=== PATIENT | female | born 1990 | race Caucasian/White ===

== ENCOUNTER 2016-12-16 03:38 | Inpatient (IN) | payer BC ==
[~2016-12-16] VITALS: Ht 167.6 cm; Wt 87.1 kg
[~2016-12-16 03:38] MED LIST: CETI10TA84 PO; PRENTAB26 PO; TRIA75TA53 PO; VALA500T60 PO
[2016-12-16 04:49] VITALS: Ht 167.6 cm; Wt 87.1 kg
[2016-12-16] MEDS ORDERED: LACTATED RINGER'S 1000ML 1,000 ML IV PRN (06:18)
[2016-12-16] MEDS ORDERED: LACTATED RINGER'S 1000ML 1,000 ML IV SCH (06:18)
[2016-12-16] MEDS ORDERED: PENICILLIN G POTASSIUM IV 6 MU in DEXTROSE 5% 250ML 250 ML IV STA (06:21)
[2016-12-16] MEDS ORDERED: FENTANYL 2MCG/ML ROPIV 1.25MG/ML 100ML BAG EPI ONE (06:39)
[2016-12-16] MEDS ORDERED: BUPIVACAINE 0.25% 30 ML VIAL ONE (06:39)
[2016-12-16] MEDS ORDERED: EpHEDrine SULFATE INJ 50 MG/ML AMP ONE (06:39)
[2016-12-16] MEDS ORDERED: FENTANYL CITRATE INJ 50 MCG/1 ML 2 ML VIAL ONE (06:39)
[2016-12-16 06:47] LABS: HEMATOCRIT 37.8 % (37-47); MEAN CELL VOLUME 80.8 fL (80-100); MEAN CORPUSCULAR HEMOGLOBIN 29.1 pg (25-34); MEAN PLATELET VOLUME 10.4 fL (7.4-10.4); PLATELET COUNT 298 K/uL (130-400); RED BLOOD COUNT 4.68 M/uL (4.2-5.4); WHITE BLOOD COUNT 18.28 K/uL (4.8-10.8)
--- NOTE | 2016-12-16 07:53 | HISTORY & PHYSICAL EXAMINATION ---
DATE OF ADMISSION: 12/16/2016 CHIEF COMPLAINT: Contractions. HISTORY OF PRESENT ILLNESS: The patient is a 26-year-old G1, P0 at 39 weeks and 4 days of gestation who was admitted this morning for labor. She started to feel contractions around 1:00 a.m. and they got closer and regular after 4:00 a.m. She was here and her cervix was checked to be 2 cm and then she ambulated. She was rechecked in 2 hours and cervix changed to 4 cm and she was admitted. Now her contractions are getting even closer, every 1 to 2 minutes and more painful. She desires epidural for pain. She denies leakage of fluid or vaginal bleeding. She reports good movements. Her has been complicated by: 1. Placenta previa on anatomy scan which was resolved on 10/08/2016. 2. History of genital herpes. No outbreaks over 1 year. She has been taking Valtrex daily during whole . 3. Meniere's disease. She is on Maxzide. PAST MEDICAL HISTORY: As above. PAST SURGICAL HISTORY: Tonsillectomy, wisdom teeth extraction. ALLERGIES: CLINDAMYCIN CAUSES RASH. MEDICATIONS: Valtrex 500 mg daily, vitamins daily, Flonase spray as needed, saline nasal spray as needed, Maxzide 75/50 mg daily, calcium 500 mg daily. SOCIAL HISTORY: The patient denies smoking, alcohol or drug use. GYNECOLOGIC HISTORY: The patient has a history of herpes in the past. Last outbreak was over a year ago. She presented to the office on 10/07/2016 when she noticed a lesion on her vulva. Exam showed whitening skin which appeared like leuokoplakia/ lichen sclerosus. It was cultured and herpes culture was negative. She was recommended to come back for biopsy of the lesion if it did not go away. She has not come back for biopsy. 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 It seems like lichen sclerosus.She has no symptoms from it. No itching/ burning / irritation or pain. Recommended to have biopsy at 6 weeks visit. She denies any history of chlamydia or gonorrhea. LABS: Blood type is A positive, antibody screen negative, rubella positive, RPR nonreactive, HIV nonreactive. H\T\H was 14/42, platelets 385. GC chlamydia cultures were negative. Quad screen testing was negative, first trimester screening was negative. One hour Glucola was 130 mg/dL. H\T\H was 12/37, 3-hour Glucola was negative. GBS culture was positive on 11/15/2016. PHYSICAL EXAMINATION: GENERAL: The patient is alert, oriented x3. She is in moderate distress with contractions. VITAL SIGNS: Her blood pressure is 125/73, respiration 20, pulse 85, temperature 97.9. CARDIOVASCULAR SYSTEM: S1, S2, RRR. LUNGS: Clear to auscultation bilaterally. ABDOMEN: Soft, gravid, Dayron 7-1/2 to 8 pounds. EXTREMITIES: Nontender, no edema. PELVIC EXAMINATION: Labia inspected again leukoplakia of the labia minor as described above. No lesions suggesting of herpes. She has no symptoms. Her cervix is 5 cm dilated, 80% effaced, -2, vertex. heart rate 130s, category 1. Hague contractions every 1-2 minutes. ASSESSMENT AND PLAN: The patient is a 26-year-old G1, P0 at 39 weeks and 4 days of gestation presenting in active labor. Vital signs stable, afebrile. heart rate reassuring. GBS positive. PLAN: Admit, IV fluids, epidural for pain and penicillin for GBS. The patient already received the first dose of penicillin. Anticipate spontaneous vaginal delivery. All questions were answered. MTDD
[2016-12-16] MEDS ORDERED: FENTANYL 2MCG/ML ROPIV 1.25MG/ML 100ML BAG EPI PRN (08:00)
[2016-12-16] MEDS ORDERED: NALBUPHINE HCL INJ 10 MG/ML AMP IV PRN (08:00)
[2016-12-16] MEDS ORDERED: DiphenhydrAMINE HCL 50 MG/ML VIAL IV PRN (08:00)
[2016-12-16] MEDS ORDERED: LACTATED RINGER'S 1000ML 500 ML IV PRN (08:00)
[2016-12-16] MEDS ORDERED: NALOXONE HCL INJ 1 MG in SODIUM CHLORIDE 0.9% 1000ML 1,000 ML IV PRN (08:00)
[2016-12-16] MEDS ORDERED: NALOXONE HCL 0.4 MG/1 ML VIAL/CARP IV PRN (08:00)
[2016-12-16] MEDS ORDERED: ONDANSETRON INJ 2 MG/ML 2 ML VIAL IV PRN (08:00)
[2016-12-16] MEDS ORDERED: EpHEDrine SULFATE INJ 50 MG/ML AMP IV PRN (08:00)
[2016-12-16] MEDS: PENICILLIN G POTASSIUM IV 3 MU in DEXTROSE 5% 100ML 100 ML IV PRN ×2 (10:02→13:40)
[2016-12-16] MEDS ORDERED: OXYTOCIN 30 UNITS/500ML NSS IV ONE (13:25)
[2016-12-16] MEDS ORDERED: MEASLES, MUMPS & RUBELLA VIRUS VIAL SQ. ONE (15:00)
[2016-12-16] MEDS ORDERED: LANOLIN OINT EXT PRN ×2 (15:00)
[2016-12-16] MEDS ORDERED: METHYLERGONOVINE MALEATE 0.2 MG/ML AMP IM ONE (15:00)
[2016-12-16] MEDS ORDERED: ACETAMINOPHEN 325 MG TAB PO PRN (15:00)
[2016-12-16] MEDS ORDERED: HYDROCORTISONE ACETATE 25 MG SUPP PR PRN (15:00)
[2016-12-16] MEDS ORDERED: OXYTOCIN 30 UNITS/500ML NSS IV PRN (15:00)
[2016-12-16] MEDS ORDERED: BENZOCAINE 20% AER SPR 82.5 GM CAN EXT PRN (15:00)
[2016-12-16] MEDS ORDERED: DIPHTHERIA/TETANUS/PERTUSSIS 0.5 ML SYR/VIAL IM. ONE (15:00)
[2016-12-16] MEDS ORDERED: SUPERCREAM 0.870 % 15GM JAR EXT PRN (15:00)
--- NOTE | 2016-12-16 15:11 | DELIVERY SUMMARY ---
DATE OF OPERATION: 12/16/2016 DATE OF DELIVERY: 12/16/2016. TIME OF DELIVERY OF BABY: 1414 p.m. TIME OF DELIVERY OF PLACENTA: 1429 p.m. DETAILS OF DELIVERY: The patient was found to be fully dilated and desired to push. She pushed for about half an hour and baby's head was . The hymenal ring and the perineal body muscles appeared to be tight around the baby's head and the perineum was found to be short, close to the anal sphincter. After verbal consent was obtained, right mediolateral episiotomy was opened to prevent third degree laceration and then the baby's head was delivered without difficulty. There was a nuchal cord around the neck and body cord around the chest. They were reduced while delivering the baby. The baby was handed to the mother where mouth and nose were suctioned and cord was delayed clamped after 1 minute. It was cut. It was a 3-vessel cord. Then cord blood was obtained. Then the vagina and perineum were checked for lacerations. There was only a right mediolateral episiotomy which was opened earlier. Rectal exam was done and confirmed to be second degree. Gloves were changed. It was repaired with 2-0 Vicryl in a running locked fashion bringing the perineal body muscles and bulbocavernosus muscles together and the skin in subcuticular fashion. The placenta was found in the vagina. It was actually pushed out while the patient is having a vomiting episode. It was examined to be complete. The uterus was explored and found to be empty and cleared of all clots and debris. Fundus was firm. EBL was 400. Mother and baby tolerated the procedure well. Sponge, lap, needle and instrument counts were correct x3. Baby was a viable female infant. Apgars 8/9. Weight is 3995 gr. No complications happened and I was present during whole procedure. I attest to the content of the Intraoperative Record and any orders documented therein. Any exceptions are noted below. MTDD
--- NOTE | 2016-12-16 15:58 | Anesthesia Procedure Note ---
Anesthesia Epidural Removal Nt Date & Time Dec 16, 2016 at 15:59 Vital Signs Pain Intensity: 0.0 Notes Mental Status: alert / awake / arousable, participated in evaluation Nausea / Vomiting: adequately controlled Pain: adequately controlled Airway Patency, RR, SpO2: stable & adequate BP & HR: stable & adequate Hydration State: stable & adequate Neuraxial Anesthesia: was administered Anesthetic Complications: no major complications apparent, pt satisfied with anesthetic care Epidural: removed without complications, with tip intact
[2016-12-16 17:05] LABS: HEMATOCRIT 31.9 % (37-47); MEAN CELL VOLUME 82.6 fL (80-100); MEAN CORPUSCULAR HGB CONC 35.1 g/dl (32-36); MEAN PLATELET VOLUME 10.6 fL (7.4-10.4); PLATELET COUNT 297 K/uL (130-400); RED BLOOD COUNT 3.86 M/uL (4.2-5.4); WHITE BLOOD COUNT 36.65 K/uL (4.8-10.8)
[2016-12-16 17:12] LABS: PROTHROMBIN TIME (PATIENT) 10.4 SECONDS (9.0-12.0)
[2016-12-16] MEDS: LACTATED RINGER'S 1000ML 1,000 ML IV SCH (17:12)
[2016-12-16] MEDS ORDERED: GENTAMICIN INJ 120 MG in DEXTROSE 5% 100ML 100 ML IV SCH (17:15)
[2016-12-16] MEDS ORDERED: GENTAMICIN CONSULT ACTIVE PRN (17:30)
[2016-12-16 17:37] LABS: COMPLETE YES; LYMPH ABS # 1.25 K/uL (1.2-3.4); LYMPHOCYTE % 3.4 %; META ABS # 0.33 K/uL (0-0); METAMYELOCYTE % 0.9 %; MYELOCYTE % 1.7 %; NEUTROPHILS % 88.8 %; VACUOLIZATION OCCASIONAL
[2016-12-16] MEDS: AMPICILLIN IV 2,000 MG in SODIUM CHLOR 0.9% AD-VAN 100ML 100 ML IV SCH (17:43)
[2016-12-16] MEDS ORDERED: GENTAMICIN INJ 120 MG in DEXTROSE 5% 100ML 100 ML IV ONE (18:00)
--- NOTE | 2016-12-16 18:07 | Pharmacy Progress Note ---
Pharmacy Antibiotic Consult Date of Service: Dec 16, 2016. Pharmacy Dosing Scope Pharmacy is consulted to initiate Gentamicin IV dosing therapy, order appropriate labs and adjust drug dose/frequency. Subjective The patient is a 26 year old female admitted on Dec 16, 2016 at 06:19. Objective Height (Feet): 5 Height (Inches): 6.00 Weight (Kilograms): 87.090 Lab Results (24hrs): Laboratory Tests Test 12/16/16 06:30 12/16/16 16:45 12/16/16 17:57 White Blood Count 18.28 K/uL 36.65 K/uL Red Blood Count 3.86 M/uL Hemoglobin 11.2 g/dL Hematocrit 31.9 % Mean Corpuscular Volume 82.6 fL Mean Corpuscular Hemoglobin 29.0 pg Mean Corpuscular Hemoglobin Concent 35.1 g/dl Platelet Count 297 K/uL Mean Platelet Volume 10.6 fL Assessment & Plan Pt is a 26yo F being prophylactically treated with IV Gentamicin. Dr. Ron Browning's order specified the dose and frequency for the conventional Gentamicin. A peak and trough has not been ordered relevant to the third dose due to the prophylactic nature of the treatment. Per Physician order, Gentamicin is only to continue for 48hrs. Thank you for consulting the pharmacy kinetic team and including us in the care of Ms. Roque. Pharmacy will continue to follow and will adjust dose/frequency as necessary. Thank you
[2016-12-16 18:31] LABS: CREATININE 0.7 mg/dl (0.60-1.20)
[2016-12-16 18:45] VITALS: BP 103/69; PULSE 92; TEMP 36.8
[2016-12-16] MEDS: FERROUS SULFATE 325 MG TAB PO SCH (20:33)
[2016-12-16] MEDS: DOCUSATE SODIUM 100 MG CAP PO SCH (20:34)
[2016-12-17] MEDS: AMPICILLIN IV 2,000 MG in SODIUM CHLOR 0.9% AD-VAN 100ML 100 ML IV SCH ×2 (00:07→06:15)
[2016-12-17 01:00] VITALS: BP 114/72; PULSE 84; TEMP 36.6
[2016-12-17] MEDS: IBUPROFEN 600 MG TAB PO PRN ×5 (01:46→20:07)
[2016-12-17] MEDS: OXYCODONE/ACETAMINOPHEN 5-325 TAB PO PRN ×5 (01:47→20:08)
[2016-12-17] MEDS: LACTATED RINGER'S 1000ML 1,000 ML IV SCH (01:50)
[2016-12-17] MEDS ORDERED: GENTAMICIN INJ 80 MG in DEXTROSE 5% 100ML 100 ML IV SCH (02:00)
[2016-12-17 04:00] VITALS: BP 114/75; PULSE 96; TEMP 36.5
[2016-12-17 07:25] LABS: CREATININE 0.65 mg/dl (0.60-1.20)
[2016-12-17 07:42] LABS: HEMATOCRIT 21.9 % (37-47); MEAN CELL VOLUME 81.4 fL (80-100); MEAN CORPUSCULAR HGB CONC 35.6 g/dl (32-36); MEAN PLATELET VOLUME 9.8 fL (7.4-10.4); PLATELET COUNT 209 K/uL (130-400); RED BLOOD COUNT 2.69 M/uL (4.2-5.4); WHITE BLOOD COUNT 19.47 K/uL (4.8-10.8)
[2016-12-17 07:44] LABS: COMPLETE YES; EOSINOPHIL % 0.9 %; LYMPH ABS # 1.71 K/uL (1.2-3.4); LYMPHOCYTE % 8.8 %; NEUTROPHILS % 87.7 %; TOXIC GRANULATION 1+
[2016-12-17] MEDS ORDERED: FERROUS SULFATE 325 MG TAB PO SCH (08:00)
[2016-12-17] MEDS: FERROUS SULFATE 325 MG TAB PO SCH ×2 (08:21→20:08)
[2016-12-17] MEDS: PRENATAL VITAMIN TAB PO SCH (08:21)
[2016-12-17] MEDS: DOCUSATE SODIUM 100 MG CAP PO SCH ×2 (08:21→20:08)
[2016-12-17 08:30] VITALS: BP 92/58; PULSE 77; TEMP 36.4; O2SAT 98
[2016-12-17] MEDS ORDERED: LACTATED RINGER'S 1000ML 1,000 ML IV SCH (09:45)
[2016-12-17] MEDS: TRIAMTERENE/HCTZ 37.5/25MG CAP PO SCH (09:47)
--- NOTE | 2016-12-17 09:58 | OB/GYN Progress Note ---
LOAD DISPATCH[facility] LOCAL Progress Note Date of Service Dec 17, 2016. Subjective conversation w/ patient, physical exam Ambulation: ambulating normally Voiding: no voiding problems Diet Tolerance: Regular Diet Lochia: Small Feeding Type: Breast Feeding Objective Vital Signs Date Time Temp Pulse Resp B/P Pulse Ox O2 Delivery O2 Flow Rate FiO2 12/17/16 04:00 36.5 96 18 114/75 12/17/16 01:00 36.6 84 18 114/72 12/16/16 18:45 36.8 92 22 103/69 Physical Exam General Appearance: WELL-APPEARING, NO APPARENT DISTRESS Abdomen: non tender, soft Fundus: Firm Extremities: non-tender, normal inspection, no pedal edema, no calf tenderness Laboratory Results Last 24 Hours Test 12/16/16 16:45 12/16/16 17:57 12/17/16 06:30 White Blood Count 36.65 K/uL 19.47 K/uL Red Blood Count 3.86 M/uL 2.69 M/uL Hemoglobin 11.2 g/dL 7.8 g/dL Hematocrit 31.9 % 21.9 % Mean Corpuscular Volume 82.6 fL 81.4 fL Mean Corpuscular Hemoglobin 29.0 pg 29.0 pg Mean Corpuscular Hemoglobin Concent 35.1 g/dl 35.6 g/dl Platelet Count 297 K/uL 209 K/uL Mean Platelet Volume 10.6 fL 9.8 fL RDW Standard Deviation 42.1 fL 41.2 fL RDW Coefficient of Variation 14.0 % 14.1 % Neutrophils % (Manual) 88.8 % 87.7 % Lymphocytes % (Manual) 3.4 % 8.8 % Monocytes % (Manual) 5.2 % 2.6 % Metamyelocytes % 0.9 % Myelocytes % 1.7 % Neutrophils # (Manual) 32.55 K/uL 17.08 K/uL Total Absolute Neutrophils 32.55 K/uL 17.08 K/uL Lymphocytes # (Manual) 1.25 K/uL 1.71 K/uL Total Absolute Lymphocytes 1.25 K/uL 1.71 K/uL Monocytes # (Manual) 1.91 K/uL 0.51 K/uL Metamyelocytes # 0.33 K/uL Myelocytes # 0.62 K/uL Toxic Vacuolation OCCASIONAL Red Blood Cell Morphology Unremarkable Prothrombin Time 10.4 SECONDS Prothromb Time International Ratio 1.0 Activated Partial Thromboplast Time 25.8 SECONDS Partial Thromboplastin Ratio 1.0 Creatinine 0.70 mg/dl 0.65 mg/dl Est Creatinine Clear Calc Drug Dose 135.3 ml/min 145.8 ml/min Estimated GFR () 138.6 142.0 Estimated GFR (Non- 119.6 122.5 Eosinophils % (Manual) 0.9 % Eosinophils # (Manual) 0.18 K/uL Toxic Granulation 1+ Assessment and Plan Post- Day Number: 1
[2016-12-17 13:15] VITALS: BP 98/63; PULSE 76; TEMP 36.5; O2SAT 97
[2016-12-17 16:00] VITALS: BP 119/73; PULSE 80; TEMP 36.6; O2SAT 99
[2016-12-17 18:23] LABS: HEMATOCRIT 22.6 % (37-47); MEAN CELL VOLUME 82.5 fL (80-100); MEAN CORPUSCULAR HEMOGLOBIN 28.8 pg (25-34); MEAN PLATELET VOLUME 9.5 fL (7.4-10.4); PLATELET COUNT 215 K/uL (130-400); RED BLOOD COUNT 2.74 M/uL (4.2-5.4); WHITE BLOOD COUNT 15.97 K/uL (4.8-10.8)
[2016-12-17 19:13] LABS: COMPLETE YES; LYMPH ABS # 2.92 K/uL (1.2-3.4); LYMPHOCYTE % 18.3 %; MYELOCYTE % 1.7 %; NEUTROPHILS % 78.3 %
[2016-12-17] MEDS ORDERED: BISACODYL 5 MG TABEC PO SCH (20:00)
[2016-12-17 23:20] VITALS: BP 99/64; PULSE 78; TEMP 36.6; O2SAT 98
[2016-12-18] MEDS ORDERED: BISACODYL 10 MG SUPP PR PRN (07:00)
[2016-12-18 08:00] VITALS: BP 111/67; PULSE 80; TEMP 36.6
[2016-12-18] MEDS ORDERED: MTR600X PO (08:05)
--- NOTE | 2016-12-18 08:06 | Discharge Instructions ---
Discharge Instructions Admission Reason for Admission: Active Labor Discharge Discharge Diagnosis / Problem: Vaginal delivery Discharge Goals Goal(s): Routine recovery after delivery Medications Continue Dispensed Medications: supercream, dermaplast, tucks, lansinoh Activity Recommendations Activity Limitations: per Instructions/Follow-up section . Instructions / Follow-Up Instructions / Follow-Up ACTIVITY RECOMMENDATIONS: * Gradual return to full activity over the next 2-3 weeks. * No lifting - nothing heavier than baby over the next 2-3 weeks. * Do not engage in vigorous exercise, sexual activity or sports until cleared by your physician. * Do not drive or operate any motorized equipment until cleared by your physician. * You may shower/bathe daily. BREAST CARE: If you are not breast feeding: * Wear a supportive bra 24 hours a day for one to two weeks. * Avoid stimulating your breasts and nipples as much as possible during the first few weeks after delivery. * When taking a shower, have the warm water hit your back, not breasts. * When your breasts feel full, apply ice packs. Usually three to four times a day helps ease the discomfort. * Take a mild pain medication (Tylenol/Motrin) when you are uncomfortable. If breast feeding: * Use breast milk to lubricate nipples. Lansinoh cream may be used for sore nipples. You do not need to remove cream prior to breast feeding. If using a different brand of cream, check the label for directions regarding removal of cream prior to nursing. * Wear a supportive bra. * If having problems with breasts or breast feeding, call a real estate consultant or your health care provider. EPISIOTOMY CARE: After delivery, if you have an episiotomy (stitches), the following steps will ease discomfort and aid healing. * For the first 24 hours after delivery, place ice packs next to your episiotomy to help reduce swelling. * After the first 24 hour-period, sitz baths, either portable or in the tub, are suggested. A shower with a shower arm sprayed over the episiotomy may be comforting. * Jennifer care should be done after each voiding and bowel movement. Squirt warm water from a plastic bottle over the perineum (region of the body between the anus and urinary opening) and pat dry. * Use Dermoplast to ease discomfort. Shake container. [place] directly over the episiotomy. * Place a Tucks on a clean sanitary pad next to your episiotomy. OVER THE COUNTER MEDICATION: * For discomfort or pain, you may use Acetaminophen (Tylenol), Ibuprofen (Advil ), or Naproxen (Aleve) following the package directions. * For constipation you may use Colace following the package directions. SPECIAL CARE INSTRUCTIONS: When you are discharged from the hospital, it is important for you to follow the instructions listed below: * During the first week at home, you should be able to care for yourself and your baby. In addition, the usual light household activities are encouraged. * Limit your activities to the way you feel. Do not try to clean the house or move furniture. Be sensible. * If you actively engage in sports and have done so up until the time of your delivery, you may resume these activities as soon as you feel able. This may take up to one month or even longer. Use good judgment. * Continue to take your vitamins for at least six weeks after the of your baby. * Your diet need not be limited unless you were on a special diet before your delivery. Breast-feeding mothers need around 2500 calories per day and at least 64-80 ounces of fluid per day (8 to 10 glasses). * You should eat foods from the four major food groups. Crash diets or fad diets are to be avoided. Eating lean meats, fresh fruits and vegetables, low-fat dairy products, high fiber foods and a regular exercise program, will help you get back to your pre- weight without putting your health at risk. * Constipation is sometimes a problem after delivery. Take a mild laxative as needed. If breast feeding, Milk of Magnesia is acceptable to use. You may use a suppository or Fleets enema if no episiotomy. * A daily shower or tub bath is suggested. Be sure to thoroughly and gently dry the perineum. * A bloody vaginal discharge will usually continue until around four weeks post . A small amount of bleeding may continue for as long as six weeks. Vaginal discharge changes from the bright red bleeding after delivery to pink then brownish and finally yellowish-pink before becoming white and disappearing. * Bleeding may increase with activity. Your first period may come in 4-8 weeks. If you are breast feeding, your period may be delayed even longer. * [place] (sex) can begin whenever both you and your partner feel comfortable and do not have any form of genital infection. It is recommended that you wait until after your return appointment and discuss with your physician. If you have questions, please talk to your health care practitioner. A condom should be used to prevent infection and . * Foreplay, gentle intercourse and lubrication is very important the first several times to prevent pain. A water-based lubricant such as K-Y jelly or Astroglide may be used. * Tampons may be used six weeks after delivery. * Douching should be avoided for 6 weeks after delivery. * If you have RH negative blood and your baby is RH positive, you will receive RHOGAM by injection prior to discharge. The nurse will give you a card to keep with you that has the date and place that you received RHOGAM after delivery. * During your care, you had a Rubella screen done to check for the presence of rubella antibodies in your blood. If your test was negative, you will receive a Rubella vaccine prior to discharge. This vaccine may cause a fever, soreness at the injection site and flu-like symptoms. If these symptoms persist, notify your health care practitioner. is not advised for three months after a Rubella vaccine. There is a higher chance of having a baby with defects if conceived within three months of getting the vaccine. * If you were discharged 24 hours from delivery or before 48 hours: Visiting nurses will come to your home 48 hours after discharge to assess you and your baby. The visiting nurse will meet with you while you are in the hospital to arrange a time and get directions to your home. * Verbalizes understanding of car seat law as reviewed with patient nursing. * Car Seat hand-out given and reviewed with patient by nursing. * Shaken baby information reviewed with patient by nursing. Call you doctor if: * Heavy bleeding (saturating several pads an hour) or passing clots the size of your fist. * A fever >101 degrees F (38.3 degrees C) on two occasions four hours apart and/or chills. * Unusual pain in the pelvic or vaginal areas. * "Baby Blues" lasting longer than two weeks. If you have any questions or concerns, call your health care practitioner at . FOLLOW-UP VISIT: * Please call the office at to schedule a 6 week examination. It is important you keep this appointment. * It is important for you to make arrangements for either yearly or twice yearly check-ups thereafter. Current Hospital Diet Patient's current hospital diet: Regular OB Diet Discharge Diet Recommended Diet: Regular OB Diet Pending Studies Studies pending at discharge: no Medical Emergencies . Who to Call and When: Medical Emergencies: If at any time you feel your situation is an emergency, please call 911 immediately. . Non-Emergent Contact Non-Emergency issues call your: Primary Care Provider, Disability Benefits Specialist . . "Provider Documentation" section prepared by Anthony Heaton. VTE Core Measure Inpt VTE Proph given/why not?: Treatment not indicated
--- NOTE | 2016-12-18 08:09 | OB/GYN Progress Note ---
TESTING LEAD Progress Note Date of Service Dec 18, 2016. Subjective conversation w/ patient, physical exam Ambulation: ambulating normally Voiding: no voiding problems Passing Gas: Yes Diet Tolerance: Regular Diet Lochia: Moderate Feeding Type: Breast Feeding Pain: 2-3/10 Notes: Doing well, no concerns. Pain well controlled. Denies dizziness, nausea, vomiting or being lightheaded. Lochia decreasing. Tolerating regular diet. Would like to go home today Objective Vital Signs Date Time Temp Pulse Resp B/P Pulse Ox O2 Delivery O2 Flow Rate FiO2 12/17/16 23:20 36.6 78 16 99/64 98 Room Air 12/17/16 16:00 36.6 80 18 119/73 99 Room Air 12/17/16 13:15 36.5 76 16 98/63 97 Room Air 12/17/16 08:30 36.4 77 18 92/58 98 Room Air Physical Exam General Appearance: WELL-APPEARING Respiratory/Chest: chest non-tender, lungs clear Cardiovascular: regular rate, rhythm Abdomen: normal bowel sounds, soft Fundus: Firm Extremities: normal range of motion, non-tender Laboratory Results Last 24 Hours Test 12/17/16 18:15 12/18/16 07:20 White Blood Count 15.97 K/uL Red Blood Count 2.74 M/uL Hemoglobin 7.9 g/dL Hematocrit 22.6 % Mean Corpuscular Volume 82.5 fL Mean Corpuscular Hemoglobin 28.8 pg Mean Corpuscular Hemoglobin Concent 35.0 g/dl Platelet Count 215 K/uL Mean Platelet Volume 9.5 fL RDW Standard Deviation 42.9 fL RDW Coefficient of Variation 14.5 % Neutrophils % (Manual) 78.3 % Lymphocytes % (Manual) 18.3 % Monocytes % (Manual) 1.7 % Myelocytes % 1.7 % Neutrophils # (Manual) 12.50 K/uL Total Absolute Neutrophils 12.50 K/uL Lymphocytes # (Manual) 2.92 K/uL Total Absolute Lymphocytes 2.92 K/uL Monocytes # (Manual) 0.27 K/uL Myelocytes # 0.27 K/uL Red Blood Cell Morphology Unremarkable Assessment and Plan Post- Day Number: 2 Continue Routine Care: -H&H stable, patient asymptomatic -D/C home today -F/u in 6 week for check.
[2016-12-18 08:10] LABS: HEMATOCRIT 25.1 % (37-47); MEAN CELL VOLUME 83.1 fL (80-100); MEAN CORPUSCULAR HEMOGLOBIN 28.8 pg (25-34); MEAN CORPUSCULAR HGB CONC 34.7 g/dl (32-36); MEAN PLATELET VOLUME 9.9 fL (7.4-10.4); PLATELET COUNT 281 K/uL (130-400); RED BLOOD COUNT 3.02 M/uL (4.2-5.4); WHITE BLOOD COUNT 16.96 K/uL (4.8-10.8)
[2016-12-18] MEDS: DOCUSATE SODIUM 100 MG CAP PO SCH (08:16)
[2016-12-18] MEDS: TRIAMTERENE/HCTZ 37.5/25MG CAP PO SCH (08:16)
[2016-12-18] MEDS: PRENATAL VITAMIN TAB PO SCH (08:16)
[2016-12-18] MEDS: FERROUS SULFATE 325 MG TAB PO SCH (08:16)
[2016-12-18] MEDS: IBUPROFEN 600 MG TAB PO PRN (08:17)
[2016-12-18 08:59] LABS: CREATININE 0.6 mg/dl (0.60-1.20)
[2016-12-18 10:40] VITALS: BP_DIAS 67; PULSE 80; TEMP 36.6
== END 2016-12-18 15:00 | disposition home or self-care (01) | DRG 775 ==
LOC: C.OPB 03:38 → C.LD 03:39 → C.OPB 06:21 → C.OBG 19:04
PROVIDERS: ADMIT Obstetrics & Gynecology; ATTEND Obstetrics & Gynecology
PROC: 10907ZC Drainage of Amniotic Fluid, Therapeutic from Products of Conception, Via Natural or Artificial Opening (ICD-10-PCS; principal; 2016-12-16)
PROC: 0W8NXZZ Division of Female Perineum, External Approach (ICD-10-PCS; principal; 2016-12-16)
PROC: 10E0XZZ Delivery of Products of Conception, External Approach (ICD-10-PCS; principal; 2016-12-16)
DX: O99.824 Streptococcus B carrier state complicating childbirth (principal); O99.89 Other specified diseases and conditions complicating pregnancy, childbirth and the puerperium; O26.893 Other specified pregnancy related conditions, third trimester; H81.09 Meniere's disease, unspecified ear; O69.81X0 Labor and delivery complicated by cord around neck, without compression, not applicable or unspecified; Z37.0 Single live birth; Z3A.39 39 weeks gestation of pregnancy; Z86.19 Personal history of other infectious and parasitic diseases; Z90.89 Acquired absence of other organs; Z98.818 Other dental procedure status; Z79.899 Other long term (current) drug therapy

== ENCOUNTER 2019-06-28 13:09 | Inpatient (IN) ==
[2019-06-28] MEDS ORDERED: OXYTOCIN 30 UNITS/500 ML BAG IV PRN ×2 (13:36→18:12)
[2019-06-28] MEDS ORDERED: PENICILLIN G POTASSIUM 6 MU in DEXTROSE 5% 250 ML IV STA (13:36)
[2019-06-28] MEDS ORDERED: PENICILLIN G POTASSIUM 3 MU in DEXTROSE 5% 100 ML IV PRN (13:36)
--- NOTE | 2019-06-28 13:41 | Obstetrical Progress Note ---
Date of Service June 28, 2019 Subjective Admit Note 28 F P1001 at 39.1 weeks admitted in active labor. GBS is positive. Cervix 5/80/-2/vertex/intact. FHT Cat 1. Will admit in labor and start antibiotics. Results & Data Vital Signs (Past 12 Hours) Vital Signs Temp Pulse Resp BP 06/28/19 13:18 36.8 C 77 20 132/83
[2019-06-28 14:11] LABS: Hematocrit (blood only) 37.4 % (37-47); Hemoglobin 12.9 g/dL (12.0-16.0); Mean Corpuscular Hemoglobin 28.2 pg (25-34); Mean Corpuscular Volume 81.7 fL (80-100); Mean Platelet Volume 10.5 fL (7.4-10.4); Platelet Count 299 K/uL (130-400); RDW Coefficient of Variation 14.6 % (11.5-14.5); RDW Standard Deviation 43.2 fL (36.4-46.3); Red Blood Count 4.58 M/uL (4.2-5.4); White Blood Count 18.75 K/uL (4.8-10.8)
[2019-06-28] MEDS: LACTATED RINGER'S 1,000 ML IV PRN ×2 (14:11→16:27)
[2019-06-28] MEDS ORDERED: ePHEDrine sulfate 50 MG/ML AMP ONE (14:21)
[2019-06-28] MEDS ORDERED: BUPIVACAINE 0.25% 30 ML VIAL ONE (14:21)
[2019-06-28] MEDS ORDERED: fentaNYL citrate 100 MCG/2 ML VIAL ONE (14:21)
[2019-06-28] MEDS ORDERED: fentaNYL 2MCG/ML ROPIV 1.25MG/ML 100 ML BAG EPI ONE (14:22)
[2019-06-28 14:23] LABS: Mean Corpuscular Hgb Conc 34.5 g/dL (32-36)
[2019-06-28] MEDS ORDERED: ePHEDrine sulfate 50 MG/ML AMP IV PRN (14:26)
[2019-06-28] MEDS ORDERED: NALBUPHINE HCL INJ 10 MG/ML AMP IV PRN (14:26)
[2019-06-28] MEDS ORDERED: ONDANSETRON INJ 2 MG/ML 2 ML VIAL IV PRN (14:26)
[2019-06-28] MEDS ORDERED: fentaNYL 2MCG/ML ROPIV 1.25MG/ML 100 ML BAG EPI PRN (14:26)
[2019-06-28] MEDS ORDERED: DiphenhydrAMINE HCL 50 MG/ML VIAL IV PRN (14:26)
[2019-06-28] MEDS ORDERED: NALOXONE HCL 0.4 MG/1 ML VIAL/CARP IV PRN (14:26)
[2019-06-28] MEDS ORDERED: NALOXONE HCL 1 MG in SODIUM CHLORIDE 0.9% 1000ML 1,000 ML IV PRN (14:26)
--- NOTE | 2019-06-28 14:27 | Anesthesiology Consultation ---
Date of Service June 28, 2019 Assessment & Plan (1) Encounter for pre-operative examination: Chart Review Chart Review: Patient NOT seen in Pre Admission Testing and Acceptable Risk for Labor Epidural Consults Requested none History Height/Weight Height: 5 ft 5 in Weight: 83.461 kg Allergies Allergy/AdvReac Type Severity Reaction Status Date / Time clindamycin Allergy Unknown RASH Verified 12/16/16 04:48 Medications Home Medications Medication Instructions Recorded Confirmed Last Taken budesonide 2 spray INTRANASAL BID 06/28/19 06/28/19 06/28/19 05:30 cetirizine 10 mg PO DAILY 06/28/19 06/28/19 06/28/19 05:30 vit-iron fum-folic ac 1 tab PO DAILY 06/28/19 06/28/19 06/27/19 21:00 [ Vitamin] valacyclovir 500 mg PO DAILY 06/28/19 06/28/19 06/27/19 21:00 Active Medications Generic Name Dose Route Start Last Admin Trade Name Freq PRN Reason Stop Dose Admin Lactated Ringer's 1,000 mls @ 125 mls/hr 06/28/19 13:36 06/28/19 14:11 Lr IV 06/30/19 13:35 999 mls/hr .Q8H PRN Administration L&D Protocol Protocol Past Medical History healthy Exercise / Class Metabolic Activity II 4-5 Yardwork/Stairs/Walk up hill Past Family History Family History Grandmother (Maternal) Family history of diabetes mellitus Grandmother (Maternal) History of thyroidectomy Mother Hypertension Grandmother (Paternal) Congestive heart failure Grandmother (Maternal) Stroke Congenital heart disease Grandfather (Paternal) Congenital heart disease Past Surgical History Surgical History History of tonsillectomy Past Anesthesia History No Hx of Anesthesia Complications and No Family Hx of Anesthesia Complications History of PONV No Hx of PONV and No Hx of Motion Sickness Social History Smoking Status: Never smoker Hx Alcohol Use: No Hx Substance Use: No substance use type: does not use Physical Exam Vital Signs Last Vital Signs Temp 36.8 C 06/28/19 13:18 Pulse 80 06/28/19 14:47 Resp 20 06/28/19 13:18 BP 132/79 06/28/19 14:33 Pulse Ox 92 06/28/19 14:47 Testing Laboratory Results 06/28/19 13:57
--- NOTE | 2019-06-28 17:09 | Obstetrical Progress Note ---
Date of Service June 28, 2019 Physical Exam Genitourinary: OB Exam Abdomen: + vertex and + regular contractions Manual OB Exam: + cervical dilation 10 cm, + cervical effacement 100%, + station -1 and + amniotic fluid OB Exam Monitor Tracing: + external FHT monitor used, + external uterine monitor used and + early decelerations present SROM with meconium noted. No urge to push. Will empty bladder and will start to push. Results & Data Vital Signs (Past 12 Hours) Vital Signs Temp Pulse Resp BP Pulse Ox 06/28/19 17:01 65 92 06/28/19 17:00 20 06/28/19 16:56 75 92 06/28/19 16:52 77 97/52 L 06/28/19 16:51 74 94 06/28/19 16:46 72 94 06/28/19 16:41 78 95 06/28/19 16:36 70 115/74 94 06/28/19 16:31 85 95 06/28/19 16:30 20 06/28/19 16:26 75 96 06/28/19 16:21 82 95 06/28/19 16:20 70 107/63 06/28/19 16:16 77 94 06/28/19 16:11 84 94 06/28/19 16:06 82 94 06/28/19 16:05 77 113/67 06/28/19 16:01 66 95 06/28/19 16:00 20 06/28/19 15:56 73 95 06/28/19 15:51 74 96 06/28/19 15:50 76 115/66 06/28/19 15:46 73 123/90 94 06/28/19 15:41 79 112/71 94 06/28/19 15:36 82 95 06/28/19 15:35 73 112/64 06/28/19 15:31 79 113/72 93 06/28/19 15:26 84 95 06/28/19 15:25 111/70 06/28/19 15:21 73 95 06/28/19 15:20 78 107/71 06/28/19 15:16 77 94 06/28/19 15:15 98 H 119/81 06/28/19 15:11 79 94 06/28/19 15:10 81 117/74 06/28/19 15:06 81 94 06/28/19 15:05 88 116/74 06/28/19 15:03 75 114/73 06/28/19 15:01 77 116/75 94 06/28/19 14:59 76 116/73 06/28/19 14:58 73 94 06/28/19 14:57 36.7 C 71 20 113/68 06/28/19 14:56 78 96 06/28/19 14:55 73 126/78 06/28/19 14:53 70 139/84 06/28/19 14:51 75 95 06/28/19 14:48 78 20 127/75 06/28/19 14:47 80 92 06/28/19 14:46 83 98 06/28/19 14:33 76 132/79 06/28/19 13:18 36.8 C 77 20 132/83
--- NOTE | 2019-06-28 17:14 | Obstetrical Progress Note ---
Date of Service June 28, 2019 Subjective No leakage noted after ambulating. FHT Cat 1.. Will discharge home. Results & Data Vital Signs (Past 12 Hours) Vital Signs Temp Pulse Resp BP Pulse Ox 06/28/19 17:11 85 97 06/28/19 17:06 108 H 96 06/28/19 17:01 65 92 06/28/19 17:00 37.0 C 20 06/28/19 16:56 75 92 06/28/19 16:52 77 97/52 L 06/28/19 16:51 74 94 06/28/19 16:46 72 94 06/28/19 16:41 78 95 06/28/19 16:36 70 115/74 94 06/28/19 16:31 85 95 06/28/19 16:30 20 06/28/19 16:26 75 96 06/28/19 16:21 82 95 06/28/19 16:20 70 107/63 06/28/19 16:16 77 94 06/28/19 16:11 84 94 06/28/19 16:06 82 94 06/28/19 16:05 77 113/67 06/28/19 16:01 66 95 06/28/19 16:00 20 06/28/19 15:56 73 95 06/28/19 15:51 74 96 06/28/19 15:50 76 115/66 06/28/19 15:46 73 123/90 94 06/28/19 15:41 79 112/71 94 06/28/19 15:36 82 95 06/28/19 15:35 73 112/64 06/28/19 15:31 79 113/72 93 06/28/19 15:26 84 95 06/28/19 15:25 111/70 06/28/19 15:21 73 95 06/28/19 15:20 78 107/71 06/28/19 15:16 77 94 06/28/19 15:15 98 H 119/81 06/28/19 15:11 79 94 06/28/19 15:10 81 117/74 06/28/19 15:06 81 94 06/28/19 15:05 88 116/74 06/28/19 15:03 75 114/73 06/28/19 15:01 77 116/75 94 06/28/19 14:59 76 116/73 06/28/19 14:58 73 94 06/28/19 14:57 36.7 C 71 20 113/68 06/28/19 14:56 78 96 06/28/19 14:55 73 126/78 06/28/19 14:53 70 139/84 06/28/19 14:51 75 95 06/28/19 14:48 78 20 127/75 06/28/19 14:47 80 92 06/28/19 14:46 83 98 06/28/19 14:33 76 132/79 06/28/19 13:18 36.8 C 77 20 132/83
--- NOTE | 2019-06-28 17:58 | Delivery Summary ---
Vaginal Delivery Summary Date of Service June 28, 2019 Vaginal Delivery Summary Delivery Note live male LATOYA over intact perineum with with delayed cord clamping. Apgars 8/9 weight pending. Cord blood obtained followed by spontaneous delivery of intact placenta. Small first degree tear repaired with 3/0 Vicryl suture. EBL 250 ml. Final sponge needle and instrument count are correct. Mom and baby stable.
[2019-06-28] MEDS ORDERED: DIPHTHERIA/TETANUS/PERTUSSIS 0.5 ML SYR/VIAL IM ONE (18:12)
[2019-06-28] MEDS ORDERED: ACETAMINOPHEN 325 MG TAB PO PRN (18:12)
[2019-06-28] MEDS ORDERED: HYDROCORTISONE ACETATE 25 MG SUPP PR PRN (18:12)
[2019-06-28] MEDS ORDERED: BENZOCAINE 20% AER SPR 82.5 GM CAN EXT PRN (18:12)
[2019-06-28] MEDS ORDERED: SUPERCREAM 0.870% 15 GM JAR EXT PRN (18:12)
[2019-06-28] MEDS ORDERED: BISACODYL 10 MG SUPP PR PRN (18:12)
--- NOTE | 2019-06-28 19:16 | Anesthesia Procedure Note ---
Date of Service June 28, 2019 Anesthesia Post Epidural Note Vital Signs Vital Signs: Temp Pulse Resp BP Pulse Ox 37.0 C 86 20 132/64 96 06/28/19 17:00 06/28/19 19:04 06/28/19 18:50 06/28/19 19:04 06/28/19 17:36 Pain Intensity Bilateral Abdomen: Pain Intensity: 7 Notes Mental Status: alert / awake / arousable and participated in evaluation Patient Amnestic to Procedure: No Nausea / Vomiting: adequately controlled Pain: adequately controlled Airway Patency, RR, SpO2: stable & adequate BP & HR: stable & adequate Hydration State: stable & adequate Neuraxial Anesthesia: was administered and sensory block is resolving Anesthetic Complications: no major complications apparent and Pt Satisfied with anesthetic care Epidural: Removed without complications and With tip intact
[2019-06-28] MEDS: BUDESONIDE AQ (RHINOCORT AQ) NASAL SPRAY 32 MCG SCH (21:48)
[2019-06-28] MEDS: DOCUSATE SODIUM 100 MG CAP PO SCH (21:48)
[2019-06-29 07:16] LABS: Hemoglobin 11.4 g/dL (12.0-16.0); Mean Corpuscular Hemoglobin 27.9 pg (25-34); Mean Corpuscular Hgb Conc 33.5 g/dL (32-36); Mean Corpuscular Volume 83.1 fL (80-100); Mean Platelet Volume 10.4 fL (7.4-10.4); Platelet Count 265 K/uL (130-400); RDW Coefficient of Variation 14.5 % (11.5-14.5); RDW Standard Deviation 44.2 fL (36.4-46.3); Red Blood Count 4.09 M/uL (4.2-5.4); White Blood Count 17.69 K/uL (4.8-10.8)
[2019-06-29] MEDS: DOCUSATE SODIUM 100 MG CAP PO SCH ×2 (08:30→20:30)
[2019-06-29] MEDS: IBUPROFEN 600 MG TAB PO PRN ×3 (08:30→23:23)
[2019-06-29] MEDS: PRENATAL VITAMIN 1 TAB PO SCH (08:30)
[2019-06-29] MEDS: CETIRIZINE HCL 10 MG TABLET PO SCH (08:32)
[2019-06-29] MEDS: BUDESONIDE AQ (RHINOCORT AQ) NASAL SPRAY 32 MCG SCH ×2 (08:36→20:30)
[2019-06-29] MEDS ORDERED: NON-FORMULARY MEDICATION (Prenatal Vit-Iron Fum-Folic Ac [Prenatal Vitamin] 1 TAB) PO SCH (09:00)
--- NOTE | 2019-06-29 09:11 | Obstetrical Progress Note ---
Date of Service June 29, 2019 Subjective Patient is seen and examined. She feels well, no complaints. Ambulating without dizziness Voiding without difficulty Tolerating regular diet with out N&V Bleeding is minimal No fever/ chills/ CP/ SOB/ N&V/ Leg pain Breast feeding without problems Vital Signs Temp Pulse Resp BP Pulse Ox 06/29/19 08:00 36.6 C 72 18 103/74 94 06/29/19 03:05 36.5 C 75 14 112/75 97 06/28/19 23:30 36.7 C 66 16 107/69 96 Lab Results 06/28/19 06/29/19 Range/Units 13:57 06:39 WBC 18.75 H 17.69 H (4.8-10.8) K/uL RBC 4.58 4.09 L (4.2-5.4) M/uL Hgb 12.9 11.4 L (12.0-16.0) g/dL Hct 37.4 34.0 L (37-47) % MCV 81.7 83.1 (80-100) fL MCH 28.2 27.9 (25-34) pg MCHC 34.5 33.5 (32-36) g/dL RDW Std Deviation 43.2 44.2 (36.4-46.3) fL RDW Coeff of Lizbeth 14.6 H 14.5 (11.5-14.5) % Plt Count 299 265 (130-400) K/uL MPV 10.5 H 10.4 (7.4-10.4) fL PE: General: Alert, orientedx3, NAD Abd: soft, NT, fundus firm, below Umbilicus Perineum intact, Lochia rubra minimal Ext; NT, no edema AP: 28 yo s/p , ppd# 1 VSS Afebrile doing well Continue routine care All questions were answered D/C home tomorrow Results & Data Vital Signs (Past 12 Hours) Vital Signs Temp Pulse Resp BP Pulse Ox 06/29/19 08:00 36.6 C 72 18 103/74 94 06/29/19 03:05 36.5 C 75 14 112/75 97 06/28/19 23:30 36.7 C 66 16 107/69 96
[2019-06-29] MEDS ORDERED: BISACODYL 5 MG TABEC PO SCH (20:00)
[2019-06-30 06:52] LABS: Basophils # (auto) 0.03 K/uL (0-0.2); Basophils % (auto) 0.3 %; Eosinophils # (auto) 0.23 K/uL (0-0.5); Hematocrit (blood only) 34.6 % (37-47); Hemoglobin 11.4 g/dL (12.0-16.0); Immature Granulocytes # (auto) 0.17 K/uL (0.00-0.02); Immature Granulocytes % (auto) 1.5 %; Lymphocytes # (auto) 2.23 K/uL (1.2-3.4); Lymphocytes % (auto) 19.5 %; Mean Corpuscular Hemoglobin 27.4 pg (25-34); Mean Corpuscular Hgb Conc 32.9 g/dL (32-36); Mean Corpuscular Volume 83.2 fL (80-100); Mean Platelet Volume 10.1 fL (7.4-10.4); Monocytes # (auto) 0.83 K/uL (0.11-0.59); Monocytes % (auto) 7.3 %; Neutrophils # (auto) 7.94 K/uL (1.4-6.5); Neutrophils % (auto) 69.4 %; Platelet Count 260 K/uL (130-400); RDW Coefficient of Variation 14.7 % (11.5-14.5); RDW Standard Deviation 44.8 fL (36.4-46.3); Red Blood Count 4.16 M/uL (4.2-5.4); White Blood Count 11.43 K/uL (4.8-10.8)
[2019-06-30] MEDS: DOCUSATE SODIUM 100 MG CAP PO SCH (09:56)
[2019-06-30] MEDS: PRENATAL VITAMIN 1 TAB PO SCH (09:56)
--- NOTE | 2019-06-30 09:56 | Obstetrical Progress Note ---
Date of Service June 30, 2019 Assessment & Plan (1) normal course: PPD #2 pt doing well disch home with instruction Subjective Ambulation: ambulating normally Voiding: no voiding problems Passing Gas:: Yes Diet Tolerance:: regular diet Lochia:: Small Feeding Type:: breast feeding Review of Systems All systems reviewed & are unremarkable except as noted in HPI & below Physical Exam Constitutional WD/WN, vitals as above well developed and well nourished Eyes PERRL, conjunctivae normal, anicteric sclerae Neck trachea midline, no thyromegaly Respiratory normal respiratory effort, lungs clear to auscultation Auscultation: no crackles, no rales and no wheezes Cardiovascular RRR, no murmur, no edema Gastrointestinal (Abdomen) normal bowel sounds, soft, nontender, no hepatosplenomegaly Uterus is below umbilicus Musculoskeletal no cyanosis or clubbing, extremities motor strength 5/5 Skin no rashes, warm and dry Neurologic patellar DTR's 2+ bilat, sensation intact Psychiatric A+Ox3, euthymic affect Genitourinary normal external appearance Results & Data Vital Signs (Past 12 Hours) Vital Signs Temp Pulse Resp BP Pulse Ox 06/29/19 23:10 36.4 C L 76 16 122/83 97
[2019-06-30] MEDS: CETIRIZINE HCL 10 MG TABLET PO SCH (09:58)
[2019-06-30] MEDS: IBUPROFEN 600 MG TAB PO PRN (09:58)
[2019-06-30] MEDS: BUDESONIDE AQ (RHINOCORT AQ) NASAL SPRAY 32 MCG SCH (09:58)
== END 2019-06-30 13:30 | disposition home or self-care (01) | DRG 807 ==
LOC: OPB 13:09 → 4S1 13:10 → 4S2 20:48